=== PATIENT | female | born 1975 | race Caucasian/White ===

== ENCOUNTER 2023-08-11 18:18 | Emergency (ER) | payer OTHER, SELFPAY ==
[2023-08-11 18:36] VITALS: BP 136/80
[2023-08-11 19:14] LABS: Urine Albumin Negative (Neg - Trace); Urine Bilirubin Negative (Negative); Urine Glucose Negative (Negative); Urine Ketone Negative (Negative); Urine Leukocyte 2+ (Negative); Urine Nitrite Negative (Negative); Urine Occult Blood Trace (Negative); Urine Urobilinogen Negative (Neg - 1+)
[2023-08-11 19:16] LABS: % Basophils 0.4 % (0-2); % Eosinophils 1.1 % (0-6); % Immature Granulocytes 0.2 % (0-0.5); % Lymphocytes 24.7 % (20.5-51.1); % Monocytes 7.7 % (1.7-9.3); % Neutrophils 65.9 % (42.2-75.2); Absolute Eosinophils 0.1 10^3/uL (0-0.7); Absolute Lymphocytes 2.1 10^3/uL (1.2-3.4); Absolute Monocytes 0.6 10^3/uL (0.1-0.6); Absolute Neutrophils 5.5 10^3/uL (1.4-6.5); Hematocrit 39.4 % (37.0-47.0); Hemoglobin 13.2 g/dL (12.0-16.0); Mean Corp Hgb Conc. 33.5 g/dL (33.0-37.0); Mean Corpuscular Hgb 29.9 pg (27.0-31.0); Mean Corpuscular Volume 89.1 fL (81.0-99.0); Mean Platelet Volume 9.5 fL (7.4-10.4); Nucleated Red Blood Cells % 0 %; Platelet Count 350 10^3/uL (130-400); Red Blood Cell Count 4.42 10^6/uL (4.20-5.40); Red Cell Dist. Width 11.9 % (11.5-14.5); White Blood Cell Count 8.3 10^3/uL (4.8-10.8)
[2023-08-11 19:17] LABS: Urine Character Very Cloudy (Clear); Urine Color Yellow
[2023-08-11 19:24] LABS: HCG, Serum Qualitative Screen Negative
[2023-08-11 19:27] LABS: Urine Bacteria Moderate (Negative); Urine White Cell >100 /HPF (0-5)
[2023-08-11 19:29] LABS: ALT (SGPT) 17 U/L (0-35); AST (SGOT) 17 U/L (14-36); Albumin 4.3 g/dl (3.5-5.0); Alkaline Phosphatase 59 U/L (38-126); Blood Urea Nitrogen 14 mg/dl (7-17); Calcium 9.3 mg/dl (8.4-10.2); Carbon Dioxide 24 mmol/L (22-30); Chloride 98 mmol/L (98-107); Glucose 93 mg/dl (70-99); Potassium 3.7 mmol/L (3.5-5.1); Sodium 133 mmol/L (135-145); Total Bilirubin 0.5 mg/dl (0.2-1.3); eGFR > 60.00
[2023-08-11 19:57] LABS: TSH Reflex To Free T4 < 0.02 uIU/ml (0.47-4.68)
[2023-08-11 20:27] LABS: Free T4 1.24 ng/dl (0.78-2.19)
[2023-08-11 21:48] VITALS: BP 124/79
[2023-08-11 21:51] VITALS: BMI 27.2
[2023-08-11 22:00] VITALS: BP 125/71
--- NOTE | 2023-08-11 22:51 | ED.GENMED ---
History of Present Illness
General
Chief Complaint: Headache
Source: patient
Exam Limitations: none
Time Seen by Provider: 08/11/23 21:56
Travel History
Have you had any contact with someone who has COVID-19?: No
Do you have any symptoms of coronavirus? Fever > 100 degrees, chills, cough, shortness of breath, sore throat, loss of taste or smell, muscle aches, or headache?: No
History of Present Illness
History of Present Illness:
This is a 47 year old female that comes in with c/o headache. States that she has had a headache for a couple of months and it is getting worse. States that it is in the back of her head and behind her eyes. States that she was just released from in
patient Psychiatric care on . States that they tried Imitrex while she was there and this did not help. States that she also has not been sleeping. States that light and sound bothers her. [facility] was also seen [facility] and they are
looking for a bed for patient as she is a voluntary admission for [facility]. States that she also has dizziness with the headache. Denies any fever, chills, chest pain, SOB, abd pain, nausea, vomiting, diarrhea, urinary burning.
Past History
Past History
ED Past Medical History: Hypothyroidism and Other (Migraines); Negative Asthma, HTN or Hypercholesterolemia
ED Past Surgical History: Gynecological (D&C)
Social History
Tobacco: Former smoker
Alcohol: Occasional
Personal:
Living: alone
Review of Systems
Review of Systems
All Other Systems: ROS reviewed and negative except as documented in HPI and ROS
Constitutional: Reports no symptoms; Denies fever or chills
EENT: Reports no symptoms
Respiratory: Reports no symptoms; Denies cough or trouble breathing
Cardiac: Reports no symptoms; Denies chest pain
ABD/GI: Reports no symptoms; Denies abdominal pain, nausea, vomiting or diarrhea
: Denies dysuria, frequency or urgency
Musculoskeletal: Reports no symptoms
Skin: Reports no symptoms
Neurological: Reports dizzy and headache
Psychiatric: Reports depression and other (Not sleeping)
Phy Exam
General Physical Exam
General Presentation: no apparent distress
General age: appears stated age
General Skin: warm and dry
General Habitus: normal
General Mental: alert
General Hydration: appears well hydrated
ENT Exam
ENT Exam: TM's normal, pharynx normal and neck supple
Eye Exam
Eye Exam: EOMI
Cardiovascular Exam
Cardiovascular Exam: regular rate/rhythm, no edema, no murmur and normal peripheral pulses
Pulmonary Exam
Pulmonary Exam: lungs clear, no respiratory distress, no rales, chest non tender, no crackles, no rhonchi, no wheezing and no cough
Gastrointestinal Exam
Gastrointestinal Exam: normal bowel sounds, non tender, soft, no organomegaly, no pulsatile mass and non distended
Musculoskeletal Exam
Musculoskeletal Exam: full ROM and no edema
Skin Exam
Skin Exam: normal color, warm/dry, no rash and no petechia
Psychiatric Exam
Psychiatric Exam: normal mood/affect
Course
Orders/Labs/Results
Orders:
Orders
08/11/23 18:42
Test Result ONCE
08/11/23 18:45
CT Head W/o Iv Contrast Urgent
Comment:
Reason For Exam: headache
08/11/23 18:54
Complete Blood Count/With Diff Urgent
Comprehensive Metabolic Panel Urgent
Free T4 Urgent
HCG, Serum Qualitative Screen Urgent
TSH Reflex To Free T4 Urgent
Urine Culture Reflexed from UA [Urinalysis Reflex To Culture] Urgent
Date Specimen was Collected: 08/11/23
Time Specimen was Collected: 18:42
Urine Microscopic Reflex Cult Urgent
Urine Culture Urgent
CHELA Source: U
Specimen Description:
Date Specimen was Collected: 08/11/23
Time Specimen was Collected: 18:42
08/11/23 22:50
0.9% Sodium Chloride 1000 ml [Nss] 1,000 ml IV BOLUS
CefTRIAXone [Rocephin] 1,000 mg IV NOW STA
Dexamethasone Sod Phosphate [Decadron] 20 mg IV NOW STA
Diphenhydramine [Benadryl] 25 mg IV NOW STA
Ketorolac [Toradol] 30 mg IV NOW STA
Prochlorperazine [Compazine] 5 mg IV NOW STA
08/11/23 22:53
Acetaminophen [Tylenol] 1,000 mg PO NOW STA
08/11/23 23:02
Sterile Water [Sterile Water For Injection] 10 ml .ROUTE .STK-MED ONE
08/12/23 00:21
Electrocardiogram (*1) Urgent
Reason for Study: Other
Other Reason for Exam: crisis
EKG- Treatment ONCE
08/12/23 01:00
COVID-19 Antigen Urgent
Source: Nasal Swab
Abnormal Lab Results
08/11/23
18:54
Sodium 133 L mmol/L
(135-145)
Creatinine 0.5 L mg/dL
(0.6-1.0)
TSH (Reflex) < 0.02 L uIU/ml
(0.47-4.68)
Ur Occult Blood Reflex Trace A
(Negative)
Leukocyte Esterase Rfl 2+ A
(Negative)
Urine RBC 3-6 A /HPF
(0-2)
Urine WBC (Reflex) >100 A /HPF
(0-5)
Urine Bacteria (Reflex) Moderate A
(Negative)
08/11/23 18:54
08/11/23 18:54
Sodium slightly low. TSH very low <0.02 but T4 normal at 1.24, Urine positive for infection. HCG negative.
Vital Signs
Initial and Last Documented VS:
Initial Vital Signs
Temp Pulse Resp BP Pulse Ox
98.1 F 93 20 136/80 99
08/11/23 18:36 08/11/23 18:36 08/11/23 18:36 08/11/23 18:36 08/11/23 18:36
Last Documented Vital Signs
Temp Pulse Resp BP Pulse Ox
98.1 F 93 20 115/59 95
08/11/23 18:36 08/11/23 18:36 08/11/23 18:36 08/12/23 01:00 08/12/23 01:01
MDM/Problems Addressed
Differential Diagnosis Includes:
UTI, Migraines, Depression
MDM/Problems Addressed:
This is a 47 year old female that comes in with c/o headache. States that this has been going on for a couple of months and she can't get rid of the headache. Patient states that she was just treated for a UTI and was just discharge from a
Psychiatric facility on .
Will check labs. Give Medication for headache relief and IV fluids. Will also treat the UTI,
Back into see patient. Patient states that her head still hurts and wanted more medication. Explained that she had been given Enough medication and that narcotics will not be given. Patient then stated that she wanted something for sleep. Explained
that she is going over to [facility] and they will need her awake to transfer her. Explained that the steroid that she has been given takes some time to work. Patient will also be treate for the UTi. Patient to return with any concerns .
Chronic conditions affecting care: Psychiatric illness and Other (history of Migraines)
Acute Exacerbation and/or Progression of Chronic Illness: Psychiatric illness
*Radiology
Radiology exam reviewed: radiology read reviewed (CT head- No acute intracranial abnormality. )
*Pulse Oximetry
Patient hypoxic: no
*EKG
Interpreted by ED Provider?: NA
Rate: EKG- N/A
*Marketing Systems Manager Interpretation
Rate: Marketing Systems Manager- N/A
*Critical Care Note
Total Time (30-74mins, 75-104mins- exclusive of procedures): Not Applicable
ED Attending Note
-
Portions of this chart may have been created with voice recognition software.� Occasional wrong word or��sound alike� substitutions may have occurred due to the inherent limitations of voice recognition software.
Discharge Plan
Departure
Patient Disposition: [facility]
Date of Disposition: 08/12/23
Time of Disposition: 01:35
Patient with high blood pressure during this ER visit?: No
Condition: Good
Covid-19: Not Applicable
Discharge Problem:
Urinary tract infection, Migraine
Instructions: Migraines (DC), Urinary Tract Infection, Adult (DC)
Prescriptions:
New
cefdinir 300 mg capsule
300 mg PO BID Qty: 14 0RF
Referrals:
Toño Peng III, MD [Family Provider] -
Activity Restrictions/Additional Instructions:
As discussed, your blood work shows that your TSH is low but your Free T4 is normal. You will need to follow up with the [facility] for further evaluation. Your CT of the head is normal. You do have a urinary tract infection and have been
given IV antibiotics here and a prescription for the next 7 days. Please increase your water intake to 8-8oz glasses daily. Follow up as directed by [facility]. IF YOU HAVE ANY OTHER CONCERNS PLEASE RETURN TO THE EMERGENCY ROOM
Interventions
Interventions:
*Risk Screen - Suicide Last Done: 08/11/23 18:36
*General Assessment Last Done: 08/11/23 18:36
*Neglect/Abuse Screening Last Done: 08/11/23 18:36
*ED COVID-19 Vaccine History Last Done: 08/11/23 23:54
ED- Neurological Assessment Last Done: 08/11/23 23:54
[2023-08-11 23:00] VITALS: BP 132/70
[2023-08-11] MEDS: NSS 1000 IV (23:12)
[2023-08-11] MEDS: TYLENOL 1000 MG PO (23:12)
[2023-08-11] MEDS: BENADRYL 25 MG IV (23:15)
[2023-08-11] MEDS: COMPAZINE 5 MG IV (23:17)
[2023-08-11] MEDS: TORADOL 30 MG IV (23:22)
[2023-08-11] MEDS: ROCEPHIN 1000 MG IV (23:24)
[2023-08-11] MEDS: DECADRON 20 MG IV (23:26)
[2023-08-12] VITALS: BP 117/61
[2023-08-12 01:00] VITALS: BP 115/59
[2023-08-12 01:51] LABS: COVID-19 Antigen Negative (Negative)
== END 2023-08-12 01:55 ==
LOC: EMR 18:18
PROVIDERS: Clinical Nurse Specialist Family Health; EMERGENCY PHYSICIAN Emergency Medicine; FAMILY PHYSICIAN Student in an Organized Health Care Education/Training Program
DX: N39.0 Urinary tract infection, site not specified (principal); G43.909 Migraine, unspecified, not intractable, without status migrainosus; E03.9 Hypothyroidism, unspecified
CPT/HCPCS: 99285; 96374; 96375; 96361; 70450; 80053; 81003; 81015; 84439; 84443; 84703; 85025; 87086; 87811; 93005